=== PATIENT | female | born 1970 | race Caucasian/White ===

== ENCOUNTER → 2020-07-04 08:14 | Outpatient (BNVA) | payer MEDICAID, SELFPAY | PROVIDERS: PCP Internal Medicine; Referring Provider Internal Medicine; Visit Provider Internal Medicine | DX: Z76.89 Persons encountering health services in other specified circumstances (principal) ==

== ENCOUNTER 2020-08-02 16:31 | Emergency (ER) | payer MEDICAID, SELFPAY ==
[2020-08-02 16:37] VITALS: BP 146/88; PULSE 100; RESP 18; TEMP 36.6; O2SAT 100; BMI 27.2
--- NOTE | 2020-08-02 17:18 | XR_ITS ---
EXAMINATION: XR ELBOW, LEFT CLINICAL INFORMATION: Fall, pain. COMPARISON: None TECHNIQUE: AP, lateral, and oblique views of the left elbow. FINDINGS: The bones and soft tissues are normal. No fracture or joint effusion. Alignment is anatomic. Joint spaces are maintained. XR/XR elbow LT min 3V IMPRESSION: Normal left elbow.
--- NOTE | 2020-08-02 17:18 | XR_ITS ---
EXAMINATION: XR RIBS, LEFT CLINICAL INFORMATION: Fall, pain left rib/flank. COMPARISON: None TECHNIQUE: 3 views of the left ribs were obtained. FINDINGS: Lungs are clear. No consolidation, pneumothorax, or pleural effusion. The cardiomediastinal silhouette and pulmonary vasculature are normal. Osseous structures are unremarkable. Ribs are intact. No fractures are identified. XR/XR ribs LT min 3V w CXR1V IMPRESSION: No acute cardiopulmonary process. No displaced rib fractures.
--- NOTE | 2020-08-02 17:18 | XR_ITS ---
EXAMINATION: XR HIP, LEFT CLINICAL INFORMATION: Follow-up left hip pain COMPARISON: None TECHNIQUE: Two views of the left hip. Frontal view of the pelvis. FINDINGS: No fracture or dislocation. The femoral heads are well-seated within their acetabula. Joint spaces are maintained. The pelvic rim is intact. The sacroiliac joints and pubic symphysis are intact. The visualized bowel gas pattern is unremarkable. XR/XR hip LT w PEL1V IMPRESSION: No fracture or malalignment. No significant degenerative change.
[2020-08-02 18:00] VITALS: BP 135/81; PULSE 92; RESP 16; TEMP 36.7; O2SAT 99
--- NOTE | 2020-08-02 18:03 | ED.FALL ---
HPI - Fall General Chief Complaint: Fall Stated Complaint: fall Time Seen by Provider: 08/02/20 17:11 Source: patient Mode of arrival: EMS Limitations: no limitations History of Present Illness HPI Narrative: Patient comes to the emergency room complaining of fall. Patient states she was walking down the stairs, and she fell landing on the left side of her body. Patient denies hitting her head, no loss of consciousness, not on blood thinners. Patient complaining of pain in her ribs her hip and left elbow on the left side. Related Data Home Medications Medication Instructions Recorded Confirmed amlodipine 2.5 mg-benazepril 10 mg 1 cap PO DAILY 07/04/20 07/04/20 capsule docusate sodium 100 mg capsule 100 mg PO DAILY 07/04/20 07/04/20 sennosides 8.6 mg tablet 8.6 mg PO BEDTIME 07/04/20 07/04/20 Allergies Allergy/AdvReac Type Severity Reaction Status Date / Time ceftriaxone [From ROCEPHIN] Allergy Unknown RASH Verified 07/04/20 08:46 Septra Allergy Unknown Rash Verified 07/04/20 08:46 sulfamethoxazole Allergy Unknown RASH Verified 07/04/20 08:46 [From SEPTRA] trimethoprim [From SEPTRA] Allergy Unknown RASH Verified 07/04/20 08:46 Rocephin Allergy Unknown Rash Uncoded 07/04/20 08:46 Review of Systems Review of Systems: Constitutional : No Weight loss, No Fever, No Chills, No Night Sweats, No Fatigue, No Malaise ENT/Mouth : No Hearing loss, No Ear Pain, No Nasal Congestion, No Sinus Pain, No Hoarseness, No sore throat, No Rhinorrhea, No Swallowing Difficulty Eyes: No Eye Pain, No Swelling, No Redness, No Foreign Body, No Discharge, No Vision Changes Cardiovascular : No Chest Pain, No SOB, No Dyspnea on Exertion, No Orthopnea, No Edema, No Palpitations Respiratory : No Cough, No Sputum, No Wheezing, No Smoke Exposure, No Dyspnea Gastrointestinal : No Nausea, No Vomiting, No Diarrhea, No Constipation, No abdominal Pain, No Hematochezia, No Melena Genitourinary : no irregular bleeding, No Dysuria, No Urinary Frequency, No Hematuria, No Urinary Incontinence, No Urgency, No Flank Pain, No Urinary Flow Changes, No Hesitancy Musculoskeletal : Complaining of left-sided hip/elbow/rib pain Skin : No Skin Lesions, No rash Neuro : No Weakness, No Numbness, No Paresthesias, No Loss of Consciousness, No Dizziness, No Headache Psych : No Anxiety/Panic, No Depression, No SI/HI/AH/VH, No Social Issues, Heme/Lymph: No Bruising, No Bleeding,No Lymphadenopathy Endocrine : No Polyuria, No Polydipsia, No Temperature Intolerance [facility] Past Medical History Medical History (Updated 08/02/20 @ 18:17 by Carine Bourne MD) HTN (hypertension) Multinodular thyroid Surgical History Hx of removal of cyst Hx of tubal ligation Family History Family History (Updated 07/04/20 @ 08:48 by Savannah Jaffe DO) Father Type 2 diabetes mellitus Arthritis Mother Hypertension Emphysema of lung Hypothyroidism Social History Social History (Updated 07/04/20 @ 08:49 by Savannah Jaffe DO) Alcohol intake: never Smoking Status: Never smoker Use of substances other than those prescribed or required for medical reasons: No Advance Directives: No Advance Directives Information Provided: Yes Physical Exam Vital Signs: Vital Signs: Last Vital Signs Temp 98 F 08/02/20 16:37 Pulse 100 08/02/20 16:37 Resp 18 08/02/20 16:37 BP 146/88 H 08/02/20 16:37 Pulse Ox 100 08/02/20 16:37 Body Mass Index 27.2 Appearance: Alert. Oriented X3. No acute distress. Eyes: Pupils equal, round and reactive to light. ENT: Pharynx normal. Neck: Normal inspection. Neck supple. No lymph nodes noted. No crepitus, normal range of motion, no cervical spine tenderness CVS: Normal heart rate and rhythm. Pulses normal. Normal S1 and S2 Respiratory: No respiratory distress. Breath sounds normal. No Wheezing. No rales Abdomen: Soft and nontender. No rigidity. No distention. good BS x4, bedside FAST negative Skin: Skin warm and dry. Normal skin color. Normal skin turgor. Extremities: No lower extremity edema. Patient is able to flex and extend elbows, shoulders, hips, knees but complains of pain, no deformity in any joint Neuro: Oriented X 3. No motor deficit. No sensory deficit. Moving all extermities. No slurred speech. Course Course Course Narrative: I discussed imaging with the patient, patient does not have any fractures. Patient declined a prescription for ibuprofen, states she has a new bottle at home MDM - Fall Imaging Data Ribs x-ray: Radiologist's impression: Lungs are clear. No consolidation, pneumothorax, or pleural effusion. The cardiomediastinal silhouette and pulmonary vasculature are normal. Osseous structures are unremarkable. Ribs are intact. No fractures are identified. XR/XR ribs LT min 3V w CXR1V IMPRESSION: No acute cardiopulmonary process. No displaced rib fractures. Hip and pelvis x-ray: Radiologist's impression: No fracture or dislocation. The femoral heads are well-seated within their acetabula. Joint spaces are maintained. The pelvic rim is intact. The sacroiliac joints and pubic symphysis are intact. The visualized bowel gas pattern is unremarkable. XR/XR hip LT w PEL1V IMPRESSION: Elbow x-ray: Radiologist's impression: FINDINGS: The bones and soft tissues are normal. No fracture or joint effusion. Alignment is anatomic. Joint spaces are maintained. XR/XR elbow LT min 3V IMPRESSION: Normal left elbow. Discharge Plan Discharge Clinical Impression: Acute costochondritis Fall Qualifiers: Encounter type: initial encounter Qualified Code(s): W19.XXXA - Unspecified fall, initial encounter Contusion Qualifiers: Encounter type: initial encounter Contusion area: elbow Laterality: left Qualified Code(s): S50.02XA - Contusion of left elbow, initial encounter Patient Disposition: Home, Self-Care Instructions: Costochondritis (ED) Additional Instructions: Please follow-up with your primary care physician tomorrow. If you have any worsening or new symptoms, please return to the emergency room or call 911 Prescriptions: No Action sennosides [Natural Senna Laxative] 8.6 mg tablet 8.6 mg PO BEDTIME RF: 0 docusate sodium [DOK] 100 mg capsule 100 mg PO DAILY RF: 0 amlodipine-benazepril 2.5-10 mg capsule 1 cap PO DAILY RF: 0
== END 2020-08-02 18:27 | disposition home or self-care (01) ==
PROVIDERS: Emergency Provider Emergency Medicine
DX: M94.0 Chondrocostal junction syndrome [Tietze] (principal); S50.02XA Contusion of left elbow, initial encounter; I10 Essential (primary) hypertension; W10.8XXA Fall (on) (from) other stairs and steps, initial encounter; Y93.9 Activity, unspecified; Y92.9 Unspecified place or not applicable; Y99.9 Unspecified external cause status
CPT/HCPCS: 71101; 73080; 73502; 99283; 99284

== ENCOUNTER 2020-08-12 11:06 | Outpatient (REF) | payer MEDICAID, SELFPAY ==
[2020-08-12 12:52] LABS: Free T4 (Free Thyroxine) 0.87 ng/dL (0.71-1.85); Thyroid Stimulating Hormone 2.37 uIU/mL (0.32-4.0)
[2020-08-13 09:07] LABS: Triiodothyronine T3 Total 96 ng/dL (76-181)
[2020-08-13 13:47] LABS: Thyroglobulin Antibodies <1 IU/mL (< or = 1); Thyroid Peroxidase Antibodies <1 IU/mL (<9)
[2020-08-15 14:46] LABS: Thyroid Stimulating Immunoglob <89 % baseline (<140)
[2020-08-20 22:22] LABS: Thyrotropin Receptor Antibody <1.00 IU/L (<=2.00)
== END 2020-08-12 11:07 | disposition home or self-care (01) ==
LOC: HO.LAB 11:06
PROVIDERS: Visit Provider Internal Medicine
DX: E04.2 Nontoxic multinodular goiter (principal)
CPT/HCPCS: 36415; 83520; 84439; 84443; 84445; 84480; 86376; 86800

== ENCOUNTER 2020-08-22 09:39 | Outpatient (REF) | payer MEDICAID, SELFPAY ==
--- NOTE | 2020-08-22 10:34 | P.BOP_ITS ---
Brief Operative Note Date of Service: 08/22/20 Surgeon: Savannah Jaffe, DO This is doctor Savannah Jaffe. This is an ultrasound-guided fine-needle aspiration report. Date of Examination: 08/22/2020 Indication: Multinodular Thyroid Porcedure: Procedure was explained to the patient. Alternatives, the risk and benefits were discussed. Written consent was obtained. A time-out was also obtained. After sterile preparation, fine-needle aspiration of a 1.1 cm L Mid Pole thyroid nodule was performed using direct ultrasound guidance to confirm accurate needle placement. Two aspirations were made using 27 gauge needles. 3 additional aspirations were made using 25 gauge needles. Samples were submitted for cytology. 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 The patient tolerated the procedure well. Aftercare instructions were provided. Impression: Uncomplicated fine needle aspiration biopsy of a Left Mid Pole 1.1 cm thyroid nodule under ultrasound guideance. Estimated blood loss (mL): 0
== END 2020-08-22 09:40 | disposition home or self-care (01) ==
LOC: HO.US 09:39
PROVIDERS: Visit Provider Internal Medicine
DX: E04.2 Nontoxic multinodular goiter (principal)
CPT/HCPCS: 10005; 88172; 88173; 88177; 88305

== ENCOUNTER 2020-08-27 14:33 | Outpatient (REF) | payer MEDICAID, SELFPAY | END 2020-08-27 14:34 | disposition home or self-care (01) | LOC: HO.LAB 14:33 | PROVIDERS: Visit Provider Internal Medicine | DX: Z20.822 Contact with and (suspected) exposure to COVID-19 (principal) | CPT/HCPCS: 36415; C9803; U0003 ==

== ENCOUNTER → 2020-09-05 13:44 | Outpatient (BNVA) | payer MEDICAID, SELFPAY | PROVIDERS: PCP Nurse Practitioner Family; Visit Provider Internal Medicine | DX: E04.2 Nontoxic multinodular goiter (principal); R63.5 Abnormal weight gain | CPT/HCPCS: 99212 ==

== ENCOUNTER 2020-09-24 07:24 | Day surgery (SDC) | payer MEDICAID, SELFPAY ==
--- NOTE | 2020-09-23 09:34 | HO.ANESPROP2 ---
Documented by User: Jane Carrizales 09/23/20 09:40 HPI - Anesthesia Eval Consult details Narrative: 50yo F for Colonoscopy [facility] Active Problems Active Problems: All Active Problems (Updated 09/18/20 @ 13:16 by [facility]) Weight gain (Acute) Multinodular thyroid (Acute) Past Medical History Medical History Anxiety Depression History of colitis HTN (hypertension) Multinodular thyroid Weight gain Family History Family History Father Type 2 diabetes mellitus Arthritis Mother Hypertension Emphysema of lung Hypothyroidism Surgical History Surgical History Hx of removal of cyst Hx of tubal ligation Social History Social History Household Members: Significant Other, Family and Children Alcohol intake: never Smoking Status: Never smoker Advance Directives: No Advance Directives Information Provided: Yes Recently lost weight without trying: No Meds Allergies Allergy/AdvReac Type Severity Reaction Status Date / Time ceftriaxone [From ROCEPHIN] Allergy Unknown RASH Verified 09/18/20 11:36 sulfamethoxazole Allergy Unknown RASH Verified 09/18/20 11:36 [From SEPTRA] trimethoprim [From SEPTRA] Allergy Unknown RASH Verified 09/18/20 11:36 Home Medications Medication Instructions Recorded Confirmed Type amlodipine 2.5 mg-benazepril 10 mg 1 cap PO DAILY 07/04/20 09/18/20 History capsule docusate sodium 100 mg capsule 100 mg PO DAILY 07/04/20 09/18/20 History sennosides 8.6 mg tablet 8.6 mg PO BEDTIME 07/04/20 09/18/20 History Exam Exam Date and Time: September 23, 202034 Assessment and Plan Assessment Anesthesia Assessment: Chart Reviewed Documented by User: Letty Powell 09/24/20 08:06 [facility] Past Medical History Medical History Anxiety Depression History of colitis HTN (hypertension) Multinodular thyroid Weight gain Family History Family History Father Type 2 diabetes mellitus Arthritis Mother Hypertension Emphysema of lung Hypothyroidism Surgical History Surgical History Hx of removal of cyst Hx of tubal ligation Social History Social History Household Members: Significant Other, Family and Children Alcohol intake: never Smoking Status: Never smoker Advance Directives: No Advance Directives Information Provided: Yes Recently lost weight without trying: No Meds Allergies Allergy/AdvReac Type Severity Reaction Status Date / Time ceftriaxone [From ROCEPHIN] Allergy Unknown RASH Verified 09/18/20 11:36 sulfamethoxazole Allergy Unknown RASH Verified 09/18/20 11:36 [From SEPTRA] trimethoprim [From SEPTRA] Allergy Unknown RASH Verified 09/18/20 11:36 Home Medications Medication Instructions Recorded Confirmed Type amlodipine 2.5 mg-benazepril 10 mg 1 cap PO DAILY 07/04/20 09/18/20 History capsule docusate sodium 100 mg capsule 100 mg PO DAILY 07/04/20 09/18/20 History sennosides 8.6 mg tablet 8.6 mg PO BEDTIME 07/04/20 09/18/20 History Exam Airway Mallampati Class: II TM Dist: >3cm Neck ROM: Full Heart: RRR Lungs: CTA Assessment and Plan Assessment Anesthesia Assessment: Anesthesia Plan Discussed and Chart Reviewed Final Anesthetic Review NPO: Yes ASA Class: II Final Preanesthetic Review: Meds/Allgs Chart Reviewed, Consent Obtained/Reviewed and Anes Risks/Benef Reviewed Patient Risk: Low Procedure Risk: Low Anesthetic Plan Anesthetic Plan: MAC: Disposition: Standard PACU
[2020-09-24 07:48] VITALS: BP 153/91; PULSE 98; RESP 16; TEMP 36.7; O2SAT 98; BMI 26.4; BMI 26.5
[2020-09-24] MEDS: Lactated Ringers 1,000 ML 100 ML IVCONT (07:58)
--- NOTE | 2020-09-24 09:03 | MHC.SHP ---
Pre-Procedural Eval Section B Chief Complaint: Colon Screening Details of Present Illness: colon cancer screening--Mother colon polyps Relevant Family History (Specify if Yes): Yes Relevant Social History: None Present Medications: None Medical History: Significant History (Hypertension, Anxiety) History of Previous Operations: Relevant previous surgery/procedure and date(s) (BTL) Allergies: Allergies Allergy/AdvReac Type Severity Reaction Status Date / Time ceftriaxone [From ROCEPHIN] Allergy Unknown RASH Verified 09/18/20 11:36 sulfamethoxazole Allergy Unknown RASH Verified 09/18/20 11:36 [From SEPTRA] trimethoprim [From SEPTRA] Allergy Unknown RASH Verified 09/18/20 11:36 Review of Systems Sugical H&P ROS: Negative: Constitution, Cardiovascular, Respiratory, Gastrointestinal, Musculoskeletal and Endocrine Exam Surgical H&P Exam: Normal: HEENT, Normal: Heart, Normal: Lungs and Normal: Extremities Plan Diagnosis/Plan: Unchanged I have reviewed the history and physical and performed a pertinent physical examination on my patient. No changes have occurred unless specified.YES
--- NOTE | 2020-09-24 09:29 | PM.PROC ---
Brief Operative Note Date of procedure: 09/24/20 Pre-op diagnosis: COLON CANCER SCREENING--MOTHER WITH COLON POLYPS Post-op diagnosis: other (DIVERTICULOSIS) Procedure: COLONOSCOPY--NO INTERVENTIONS FINDINGS: CLEO--Nl tone PREP+Excellent scope easily into rectosig-descending colon--scattered diverticuli @ mid transverse colon-looping required extrinsic abdominal pressure into ascending colon and cecum: AO/Valve well seen. Slow with drawal scope good rotational views, no mucosal lesions seen. ARV--clear PLAN REPEAT SCREENING IN 5 YEARS DUE TO FAMILY HX. 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
[2020-09-24 09:32] VITALS: BP 102/72; PULSE 87; RESP 20; TEMP 36.4; O2SAT 100
[2020-09-24 10:10] VITALS: BP 116/83; PULSE 67; RESP 20; TEMP 36.1; O2SAT 99
--- NOTE | 2020-09-24 12:05 | HO.POSTANES ---
Post Anesthesia Evaluation Post Anesthesia Evaluation Vital Signs: Vital Signs Temp Pulse Resp BP Pulse Ox 09/24/20 10:10 97 F 67 20 116/83 99 09/24/20 09:32 97.5 F 87 20 102/72 100 09/24/20 07:48 98.1 F 98 16 153/91 H 98 Anesthesia: Monitored Mental Status: Awake Pain Control: Satisfactory Nausea/Vomiting: None Hydration: Adequate Anesthesia-Related Issues: No Anes. Related Issues
== END 2020-09-24 10:46 | disposition home or self-care (01) ==
PROVIDERS: PCP Internal Medicine; Visit Provider Internal Medicine Gastroenterology
PROC: 0DJD8ZZ Inspection of Lower Intestinal Tract, Via Natural or Artificial Opening Endoscopic (ICD-10-PCS; CPT 45378; principal; 2020-09-24 08:40)
DX: Z12.11 Encounter for screening for malignant neoplasm of colon (principal); I10 Essential (primary) hypertension; Z83.71 Family history of colonic polyps; Z88.2 Allergy status to sulfonamides
CPT/HCPCS: 45378; J3010

== ENCOUNTER → 2020-10-25 11:01 | Outpatient (BNVA) | payer MEDICAID, SELFPAY | PROVIDERS: PCP Internal Medicine; Visit Provider Dietitian, Registered ==

== ENCOUNTER 2020-11-22 11:14 | Outpatient (REF) | payer MEDICAID, SELFPAY | END 2020-11-22 11:15 | disposition home or self-care (01) | LOC: HO.LAB 11:14 | PROVIDERS: Visit Provider Internal Medicine | DX: Z20.822 Contact with and (suspected) exposure to COVID-19 (principal) | CPT/HCPCS: C9803; U0003; U0005 ==